=== PATIENT | male | born 1965 | race Caucasian/White ===

== ENCOUNTER 2019-06-21 12:09 | Emergency (ER) | payer OTHER ==
[~2019-06-21] VITALS: Ht 182.9 cm; Wt 62.6 kg
[2019-06-21] MEDS ORDERED: fentaNYL 100 mcg/2 mL IV ONE (12:45)
[2019-06-21] MEDS ORDERED: Meclizine 25mg tab ORAL PRN (12:45)
--- NOTE | 2019-06-21 12:45 | Emergency Room Report ---
History of Present Illness General Chief Complaint: Headache Source: Patient, Medical Record, EMS Present Illness HPI Patient is a 44-year-old male past medical history of hemorrhagic stroke status post craniotomy who presents to the ER complaining of headache for 1 day. Patient states that he also has a history of seizure disorder but denies any recent seizures. Patient complains of a room spinning sensation. Patient denies any focal weakness, fever, chills patient denies any chest pain or shortness of breath. Patient denies any head trauma. Patient denies any recent travel. Patient states that he was sent here from his extended care facility by his primary care physician for a CT of his head. Allergies: Coded Allergies: No Known Allergies (Unverified , 06/21/19) Patient History Reviewed Nursing Documentation: PMH: Agreed; PSxH: Agreed Review of Systems All Other Systems: negative except mentioned in HPI Physical Exam Vital Signs Date Time Temp Pulse Resp B/P (MAP) Pulse Ox O2 Delivery O2 Flow Rate FiO2 06/21/19 12:30 97.7 81 16 123/84 (97) 96 Room Air Sp02 EP Interpretation: reviewed, normal General Appearance: no apparent distress, alert, GCS 15, non-toxic Head: atraumatic, other - Status post right parietal craniotomy ENT: hearing grossly normal, normal pharynx, no angioedema, normal voice Neck: full range of motion, supple/symm/no masses Respiratory: chest non-tender, lungs clear, normal breath sounds, speaking full sentences Cardiovascular #1: regular rate, rhythm, no edema Gastrointestinal: normal bowel sounds, non tender, soft, non-distended, no guarding, no rebound Genitourinary: normal inspection, no CVA tenderness Musculoskeletal: other - Patient ambulating with cane. Neurologic: other - Right upper extremity 1 out of 5 motor strength secondary to prior stroke. Psychiatric: judgement/insight normal, memory normal, mood/affect normal, no suicidal/homicidal ideation Skin: no rash, warm/dry Medical Decision Making Diagnostic Impression: Primary Impression: Headache ER Course Patient is well-appearing. Vital signs are stable. He was concerned due to his history of hemorrhagic stroke. He tells me that this felt different than his hemorrhagic stroke. Patient CT demonstrates no acute bleed or infarct. Patient informed of his findings and is requesting to go back to his extended care facility. After discussing risks and benefits of further diagnostics, treatment plans, as well as indications for and risks of admission, the patient is agreeable to being discharged home. I have explained that their evaluation and treatment in the emergency department today is an important step towards them achieving better health but that their evaluation today is not intended to replace further evaluation and treatment by a physician in their local clinic. I have explained that while the current findings suggest no immediate life threatening emergency they will require further evaluation and treatment by a physician of their choice in their area. They understand that it will be necessary for them to review the final reports of their ED visit with their clinic physician. We have reviewed indications for return to the Emergency Department. I have explained that additional time may need to pass and/or additional testing as an outpatient may be necessary before a definitive diagnosis can be made. They tell me they are willing to follow up as instructed within the timeframe I recommend. They appear to understand what we discussed. Additionally they understand that if they are unable to be seen by an outpatient physician they are welcome, and in fact should, return to the Emergency Department for a repeat evaluation. The patient is stable at time of discharge. Laboratory Tests Test 06/21/19 12:55 White Blood Count 8.5 K/UL (4.8-10.8) Red Blood Count 4.63 M/UL (4.70-6.10) L Hemoglobin 15.1 G/DL (14.2-18.0) Hematocrit 44.0 % (42.0-52.0) Mean Corpuscular Volume 95 FL (80-99) Mean Corpuscular Hemoglobin 32.5 PG (27.0-31.0) H Mean Corpuscular Hemoglobin Concent 34.2 G/DL (32.0-36.0) Red Cell Distribution Width 11.3 % (11.6-14.8) L Platelet Count 264 K/UL (150-450) Mean Platelet Volume 6.9 FL (6.5-10.1) Neutrophils (%) (Auto) 67.4 % (45.0-75.0) Lymphocytes (%) (Auto) 22.4 % (20.0-45.0) Monocytes (%) (Auto) 6.4 % (1.0-10.0) Eosinophils (%) (Auto) 3.2 % (0.0-3.0) H Basophils (%) (Auto) 0.7 % (0.0-2.0) Sodium Level 142 MMOL/L (136-145) Potassium Level 4.1 MMOL/L (3.5-5.1) Chloride Level 106 MMOL/L (98-107) Carbon Dioxide Level 27 MMOL/L (21-32) Anion Gap 9 mmol/L (5-15) Blood Urea Nitrogen 10 mg/dL (7-18) Creatinine 1.0 MG/DL (0.55-1.30) Estimate Glomerular Filtration Rate > 60 mL/min (>60) Glucose Level 85 MG/DL (74-106) Calcium Level 8.8 MG/DL (8.5-10.1) Magnesium Level 1.9 MG/DL (1.8-2.4) Total Bilirubin 0.3 MG/DL (0.2-1.0) Aspartate Amino Transferase (AST) 17 U/L (15-37) Alanine Aminotransferase (ALT) 25 U/L (12-78) Alkaline Phosphatase 92 U/L (46-116) Total Protein 7.8 G/DL (6.4-8.2) Albumin 3.7 G/DL (3.4-5.0) Globulin 4.1 g/dL Albumin/Globulin Ratio 0.9 (1.0-2.7) L Last Vital Signs Date Time Temp Pulse Resp B/P (MAP) Pulse Ox O2 Delivery O2 Flow Rate FiO2 06/21/19 12:30 97.7 81 16 123/84 (97) 96 Room Air Disposition: XFER SNF Condition: Stable Halle Stiles M.D. Jun 21, 2019 12:45
[2019-06-21 13:00] VITALS: BP 120/89
--- NOTE | 2019-06-21 13:00 | NUR ---
ED Nurse Note: Pt came from SNF w/ c/o head pain R side. Pt had craniotomy in October and has pain 10/10 R side of head. Pt says has severe itching there as well. Pt is alert and orientedx4, ambulatory with cane. Pt is set u sylvia monitor.
[2019-06-21 13:17] LABS: BASOPHILS % (AUTO) 0.7 % (0.0-2.0); EOSINOPHILS % (AUTO) 3.2 % (0.0-3.0); HEMOGLOBIN 15.1 G/DL (14.2-18.0); LYMPHOCYTES % (AUTO) 22.4 % (20.0-45.0); MEAN CORPUSCULAR VOLUME 95 FL (80-99); MONOCYTES % (AUTO) 6.4 % (1.0-10.0); NEUTROPHILS % (AUTO) 67.4 % (45.0-75.0); PLATELET COUNT 264 K/UL (150-450); RED BLOOD COUNT 4.63 M/UL (4.70-6.10); RED CELL DISTRIBUTION WIDTH 11.3 % (11.6-14.8); WHITE BLOOD COUNT 8.5 K/UL (4.8-10.8)
[2019-06-21] MEDS ORDERED: ATORVASTATIN CA80 MG ORAL (13:28)
[2019-06-21] MEDS ORDERED: DIPHENHYDRAMINE25 M1 ORAL (13:28)
[2019-06-21] MEDS ORDERED: ACIDOPHILUS1 EAC6 PO (13:28)
[2019-06-21] MEDS ORDERED: ASPIRIN325 MG ORAL (13:28)
[2019-06-21] MEDS ORDERED: CALAMINE LOTIO177 ML TP (13:28)
[2019-06-21 13:34] LABS: ANION GAP 9 mmol/L (5-15); BLOOD UREA NITROGEN 10 mg/dL (7-18); CALCIUM 8.8 MG/DL (8.5-10.1); CARBON DIOXIDE 27 MMOL/L (21-32); CHLORIDE 106 MMOL/L (98-107); POTASSIUM 4.1 MMOL/L (3.5-5.1); SODIUM 142 MMOL/L (136-145)
[2019-06-21] MEDS ORDERED: NEXIUM40 MG ORAL (13:35)
[2019-06-21] MEDS ORDERED: UTI-STAT L3875 MG/31 PO (13:35)
[2019-06-21] MEDS ORDERED: ACETAMINOPHEN500 M3 ORAL (13:35)
[2019-06-21] MEDS ORDERED: MIRTAZAPINE15 M3 ORAL (13:35)
[2019-06-21] MEDS ORDERED: MAG-OXIDE400 M1 PO (13:35)
[2019-06-21] MEDS ORDERED: GABAPENTIN300 MG ORAL (13:35)
[2019-06-21] MEDS ORDERED: ACETAMINOPHEN325 M1 ORAL (13:35)
[2019-06-21] MEDS ORDERED: ACETAMINOPHEN-1 EAC1 ORAL (13:35)
[2019-06-21] MEDS ORDERED: LEVETIRACETAM500 MG ORAL (13:35)
[2019-06-21 13:38] LABS: ALANINE AMINOTRANSFERASE 25 U/L (12-78); ALBUMIN 3.7 G/DL (3.4-5.0); ALBUMIN/GLOBULIN RATIO 0.9 (1.0-2.7); ALKALINE PHOSPHATASE 92 U/L (46-116); ASPARTATE AMINO TRANSFERASE 17 U/L (15-37); BILIRUBIN,TOTAL 0.3 MG/DL (0.2-1.0)
[2019-06-21] MEDS ORDERED: VITAMIN B-12500 MCG ORAL (13:39)
[2019-06-21] MEDS ORDERED: WELLBUTRIN XL150 MG ORAL (13:39)
[2019-06-21] MEDS ORDERED: ASCORBIC ACID500 MG ORAL (13:39)
[2019-06-21] MEDS ORDERED: VITAMIN D310000 UNIT PO (13:39)
[2019-06-21] MEDS ORDERED: DICLOFENAC SOD100 GM TP (13:39)
--- NOTE | 2019-06-21 14:00 | Diagnostic Imaging Report ---
Indication: Headache Technique: Contiguous 5 mm thick transaxial imaging of the head obtained in a Siemens Sensation [address] scanner. Soft tissue and bone windows generated. Automatic Exposure Control was utilized. Total Dose length Product (DLP): [address] Dose Index Volume (CTDIvol): 62.7 mGy Comparison: none Findings: Large craniectomy with absence of the calvarial flap noted over the right side of the skull. Cystic encephalomalacia demonstrated with regard to most of the right temporal lobe. The cisterna magna is prominent. The ventricles appear fairly symmetric. There is no evidence of acute hemorrhage, edema or mass effect. IMPRESSION: No definite evidence of acute intracranial hemorrhage, mass effect or edema. Status post large right-sided craniectomy. Soft tissue covering over the surgical site noted. Encephalomalacia of the right temporal lobe. The CT scanner at [facility] is accredited by the [employer] and the scans are performed using dose optimization techniques as appropriate to a performed exam including Automatic Exposure control.
--- NOTE | 2019-06-21 16:42 | NUR ---
ED Nurse Note: Called facility and report given to Yenifer. awaiting for ambulance
[2019-06-21 18:45] VITALS: BP 124/82
== END 2019-06-21 18:45 ==
LOC: EDBD 12:09 → EMR 14:00
DX: R51 Headache (principal); G43.909 Migraine, unspecified, not intractable, without status migrainosus
CPT/HCPCS: 36415; 70450; 80053; 83735; 85025; 96361; 96374; J3010; J7030; Z7502; 99284